=== PATIENT | female | born 1995 | race Caucasian/White ===

== ENCOUNTER 2018-04-16 13:25 | Inpatient (IN) | payer BC ==
[2018-04-16] MEDS ORDERED: Misoprostol 25 MCG (1/4 of 100 MCG) Tab VAG SCH (15:00)
--- NOTE | 2018-04-16 15:35 | US ---
Biophysical profile: Multiple real-time images were obtained. Comparison: Previous obstetrical ultrasound, most recent study of 04/12/18. Dates: LMP: LMP given as 08/05/17, BRENNAN 05/12/18, gestational age 36 weeks 2 days Current ultrasound: BRENNAN 05/14/18, gestational age 36 weeks 0 days Earliest ultrasound (04/12/18): BRENNAN 05/13/18, gestational age 36 weeks 1 day presentation: Cephalic Placenta: Anterior with no findings of placenta previa Amniotic fluid: KIMBERLEE 11.15 cm Measurements: BPD: 8.76 cm - 35 weeks 3 days Head circumference: 31.50 cm - 35 weeks 3 days Abdominal circumference: 32.50 cm - 36 weeks 3 days Femur length: 7.13 cm - 36 weeks 4 days Estimated weight: 2878 g ( 6 lb 6 ounces) fetus at the 57th percentile for age by current ultrasound Cervical length: 3.6 cm Growth curves: Various growth curves are around the mean percentile. Growth is felt to be appropriate from previous studies. Impression: 1. Single intrauterine fetus currently cephalic in presentation. 2. Dates as noted above. 3. No complicating process is seen by ultrasound at this time. Diagnostic code #2 MTDD
[2018-04-16] MEDS ORDERED: Acetaminophen 325 MG Tab PO PRN (17:28)
[2018-04-16] MEDS: Labetalol 100 MG Tab PO SCH (18:43)
[2018-04-16] MEDS: Misoprostol 25 MCG (1/4 of 100 MCG) Tab VAG SCH ×3 (18:45→23:56)
[2018-04-16] MEDS ORDERED: Lactated Ringers 1,000 ML ONE (20:28)
[2018-04-16] MEDS ORDERED: Lidocaine 1% 50 ML MDV INJECT ONE (20:28)
[2018-04-16] MEDS ORDERED: Sodium Chloride 0.9% 10 ML Syringe FLUSH PRN (20:28)
[2018-04-16] MEDS ORDERED: Nalbuphine 20 MG/ML 1 ML Syringe IVPUSH ONE ×2 (20:28)
[2018-04-16] MEDS ORDERED: Oxytocin/Lactated Ringers 10 UNIT/1,000 ML BAG IV SCH (20:30)
[2018-04-16] MEDS: Lactated Ringers 1,000 ML IV SCH (20:37)
[2018-04-16] MEDS: Oxytocin/Lactated Ringers 10 UNIT/1,000 ML BAG IV SCH (20:37)
[2018-04-16] MEDS ORDERED: ePHEDrine 50 MG/ML SDV IVPUSH PRN (22:12)
[2018-04-16] MEDS ORDERED: Ondansetron 4 MG/2 ML SDV IVPUSH PRN (22:12)
[2018-04-16] MEDS ORDERED: diphenhydrAMINE 50 MG/ML SDV IVPUSH PRN (22:12)
--- NOTE | 2018-04-16 22:15 | PCM.PREANE ---
Preanesthetic Assessment - Procedure Proposed Procedure: FRITZ - Anesthesia/Transfusion/Family Hx Anesthesia History: Prior Anesthesia Without Reaction Family History of Anesthesia Reaction: No Transfusion History: No Prior Transfusion(s) - Review of Systems General: No Symptoms Pulmonary: No Symptoms Cardiovascular: No Symptoms Gastrointestinal: No Symptoms Neurological: No Symptoms Other: Reports: None - Physical Assessment NPO Status Date: 04/16/18 NPO Status Time: 18:00 Pulse: 80 O2 Sat by Pulse Oximetry: 100 Respiratory Rate: 16 Blood Pressure: 147/94 Vital Signs: Last Vital Signs Temp 37.0 C 04/16/18 13:25 Pulse 80 04/16/18 18:43 Resp 16 04/16/18 13:25 BP 147/94 H 04/16/18 18:43 Pulse Ox 100 04/16/18 13:25 Height: 1.65 m Weight: 82.599 kg ASA Class: 2 Mental Status: Alert & Oriented x3 Airway Class: Mallampati = 2 Dentition: Reports: Normal Dentition Thyro-Mental Finger Breadths: 3 Mouth Opening Finger Breadths: 3 ROM/Head Extension: Full Lungs: Clear to Auscultation, Normal Respiratory Effort Cardiovascular: Regular Rate, Regular Rhythm - Allergies Allergies/Adverse Reactions: Allergies Allergy/AdvReac Type Severity Reaction Status Date / Time No Known Allergies Allergy Verified 01/01/18 19:41 CDT - Blood Blood Available: No Product(s) Available: None - Anesthesia Plan Pre-Op Medication Ordered: None - Acknowledgements Anesthesia Type Planned: Epidural Pt an Appropriate Candidate for the Planned Anesthesia: Yes Alternatives and Risks of Anesthesia Discussed w Pt/Guardian: Yes Pt/Guardian Understands and Agrees with Anesthesia Plan: Yes PreAnesthesia Questionnaire - Past Health History Medical/Surgical History: Denies 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: Neurological History: Reports: Headaches, Chronic - Past Surgical History Neurological Surgical History: Reports: None - SUBSTANCE USE Smoking Status *Q: Never Smoker Tobacco Use Within Last Twelve Months: No Second Hand Smoke Exposure: No - HOME MEDS Home Medications: Home Meds Labetalol HCl [Labetalol] 100 mg PO BID #60 tablet 04/14/18 [Rx] - CURRENT (IN HOUSE) MEDS Current Meds: Current Medications Acetaminophen (Tylenol) 650 mg PO Q4H PRN PRN Reason: Pain Last Admin: 04/16/18 19:27 Dose: 650 mg Diphenhydramine HCl (Benadryl) 25 mg IVPUSH Q6H PRN PRN Reason: Pruritis Ephedrine Sulfate (Ephedrine Sulfate) 5 mg IVPUSH ASDIRECTED PRN PRN Reason: Hypotension Fentanyl (Sublimaze) 100 mcg EPIDUR Q3H PRN PRN Reason: Pain Fentanyl/Bupivacaine HCl (Fentanyl/Bupivacaine/Ns 2 Mcg-0.125% 100 Ml) 100 ml EPIDUR ASDIRECTED [place] Oxytocin/Lactated Ringer's (Pitocin In Lr 10 Units/1,000 Ml) 10 unit in 1,000 mls @ 12 mls/hr IV TITRATE [place]; Protocol Last Titration: 04/16/18 21:37 Dose: 6 munits/min, 36 mls/hr Lactated Ringer's (Ringers, Lactated) 1,000 mls @ 125 mls/hr IV ASDIRECTED H[place] Last Admin: 04/16/18 20:37 Dose: 125 mls/hr Oxytocin/Lactated Ringer's (Pitocin In Lr 10 Units/1,000 Ml) 10 unit in 1,000 mls @ 500 mls/hr IV .CONTINUOUS [place] Labetalol HCl (Normodyne) 100 mg PO TID [place] Last Admin: 04/16/18 18:43 Dose: 100 mg Misoprostol (Cytotec) 25 mcg VAG Q3H [place] Stop: 04/16/18 23:31 Last Admin: 04/16/18 21:08 Dose: Not Given Ondansetron HCl (Zofran) 4 mg IVPUSH ONETIME PRN PRN Reason: Nausea/Vomiting Sodium Chloride (Saline Flush) 10 ml FLUSH ASDIRECTED PRN PRN Reason: Keep Vein Open Discontinued Medications Lactated Ringer's (Ringers, Lactated) Confirm Administered Dose 1,000 mls @ as directed .ROUTE .STK-MED ONE Stop: 04/16/18 20:29 Last Admin: 04/16/18 21:08 Dose: Not Given Lidocaine HCl (Xylocaine 1%) 20 ml INJECT ONETIME ONE Stop: 04/16/18 20:29 Misoprostol (Cytotec) 25 mcg VAG Q4H [place] Last Admin: 04/16/18 15:22 Dose: 25 mcg Nalbuphine HCl (Nubain) 1 mg IVPUSH ONETIME ONE Stop: 04/16/18 20:29 Nalbuphine HCl (Nubain) 10 mg IVPUSH ONETIME ONE Stop: 04/16/18 20:29
[2018-04-17] MEDS: Labetalol 100 MG Tab PO SCH ×2 (00:15→08:40)
[2018-04-17] MEDS: fentaNYL 100 MCG/2 ML SDV EPIDUR PRN ×2 (03:59→11:31)
[2018-04-17] MEDS: Bupivacaine/fentaNYL/NS 100 ML Bag EPIDUR SCH ×2 (03:59→11:31)
[2018-04-17] MEDS: Lactated Ringers 1,000 ML IV SCH (04:29)
--- NOTE | 2018-04-17 06:49 | HP ---
DATE OF ADMISSION: 04/16/2018 ADMISSION DIAGNOSES: 36-2/7 weeks' intrauterine , preeclampsia. HISTORY OF PRESENT ILLNESS: The patient is a 22-year-old, 2, para 0-0-1-0, white female, who is at 36-2/7 weeks' gestational age with an BRENNAN of 05/12/2018. She has been seen over the last week in clinic with progressively increasing blood pressures. Last week, her blood pressures were in the 130s to 145/90 range. They did come down with time and with extended monitoring in Labor and Delivery. Her biophysical profile was reassuring at 8/8 at that time. Laboratory testing at that time initially showed a normal CMP with the exception of the uric acid was 7.9. Liver function studies and kidney function studies specifically were negative. Her deep tendon reflexes were normal, and the patient was advised to go to bedrest, decrease her salt, do daily blood pressure evaluations, and call if increased or if situation worsened. She did come in over the weekend, specifically 04/14/2018, at which time, borderline blood pressures were again found. Her uric acid at that time was decreased to 7.7 and liver function studies were again normal. She was started on labetalol 100 mg p.o. b.i.d. She had a general feeling of unwell at that time. At this time, she is seen in clinic in followup and her blood pressures are again borderline elevated with average approximately 138/92. She has trace edema. Her urinalysis shows 2+ protein. Her uric acid is 7.0 and liver function studies and CBC otherwise are within normal limits. She underwent biophysical profile, which was a score 4 on a scale of 10, and was evaluated in Labor and Delivery. Her heart tones were generally reassuring, but reactive nonstress test was not obtained. Decision was made to proceed with induction of labor for the diagnosis of preeclampsia at 36-2/7 weeks' gestational age. Her cervix was 2 cm, 70% effaced, mid position, minus 3, soft. The patient is in agreement with the plan at this time. She is concerned about her . LEGAL OFFICE ADMINISTRATOR HISTORY: BRENNAN 05/12/2018 as determined by a first ultrasound done on 01/18/2018. This was substantiated by a second ultrasound done on 04/12/2018. The patient's course up until approximately 10 days ago was unremarkable. She has had a group B strep screen which was negative in Labor and Delivery. She is Rh negative and had RhoGAM given during the second trimester. She had flu shot given 09/07/2017, and she is rubella immune. The patient is okay with an epidural and again she received RhoGAM on 02/15/2018. Her first visit was a transfer of care from [place], [place]. She had recently moved to [place] for work-related reasons. This initial transfer visit was at 23-5/7 weeks' gestational age. The patient was seen on a regular basis throughout the rest of the . Her weight gain during the course of that time was from 160.8 up to 181 pounds for a 20-pound weight gain. Her first abnormal blood pressures were noted on 04/12/2018. Laboratory testing in shows blood to be O-negative with negative antibody screen. RhoGAM given at second trimester. Her Pap smear was negative back in 08/2017. She is rubella immune. HIV assay was negative as were gonorrhea and chlamydia assays. Her 1-hour GTT was elevated at 173, but a 3- hour glucose tolerance test was normal with the following values. Fasting blood sugar 93, 1-hour blood sugar of 149, 2-hour blood sugar 132, 3-hour blood sugar 127. Second trimester hemoglobin was 11.2 g/dL at which time she was started on some iron therapy. Platelet count at that time was 248. She is group B strep negative. ALLERGIES: Bee stings. CURRENT MEDICATIONS: 1. vitamins 1 daily. 2. Labetalol 100 mg p.o. b.i.d. PAST MEDICAL HISTORY: Asthma. PAST SURGICAL HISTORY: [place] teeth extraction. FAMILY HISTORY: Mother is alive, but a smoker, She has high blood pressure and thyroid problems along with psoriasis. Father is alive, is a smoker, has some type of potential cancer diagnosed, but the patient does not know the details of this. Two brothers, twins, alive and well, and one sister alive and well. Maternal grandmother, history unknown. Maternal grandfather is alive with diabetes. Paternal grandfather, unknown history, and paternal grandmother, unknown history. There is no family history of complications, bleeding, or blood clotting disorders. SOCIAL HISTORY: The patient is single, lives in [place]. She has some college education. Her significant other is Jared Oglesby. She does not use any significant amounts of alcohol, drugs, or tobacco. REVIEW OF SYSTEMS: GENERAL: The patient has a feeling of unwell. A slight headache is noted. She does report edema in lower extremities. SKIN: Warm and without lesions. HEENT: Headaches. CARDIOVASCULAR: No chest pain or exercise intolerance. RESPIRATORY: No shortness of breath or infectious symptoms. BREASTS: Changes associated with only - the patient does plan to breast feed. GI: Negative. : The baby has been active, but decreased in activity. MUSCULOSKELETAL: Negative with the exception of mild edema in bilateral lower extremities. NEUROLOGICAL: Headaches and general feeling of unwell. PHYSICAL EXAMINATION: GENERAL: The patient is a well-developed, well-nourished pleasant female, in mild distress, who has somewhat of a concerned look on her face and is worried about . She reports headache. VITAL SIGNS: Blood pressure is 138/92 on one evaluation in the clinic. Remainder of exam, evaluations on extended evaluation in Labor and Delivery are similar. Her weight is 181 with weight earlier in of 160 for a 20- pound weight gain. heart rate 145. SKIN: Warm and dry without lesions. HEENT: Within normal limits. NECK: Within normal limits. BACK: Within normal limits. LUNGS: Clear with good breath sounds in all lung sanchez. CARDIOVASCULAR: Shows regular rate and rhythm without murmurs. BREAST: Deferred at this time. The patient does plan to breast feed. ABDOMEN: Protuberant with with fundal height of 35.5 cm with baby in vertex presentation. : Cervix is 2 cm, 70% effaced, mid position, minus 3 station, soft. EXTREMITIES: Show trace edema. NEUROLOGICAL: Shows deep tendon reflexes 1+/4 in lower extremities bilaterally. ASSESSMENT: 1. 36-2/7 weeks' intrauterine , preeclampsia with a general feeling of unwell, proteinuria, elevated uric acid. 2. Non-reassuring testing consisting of a biophysical profile with score of 4/10. 3. Rh-negative. Has received RhoGAM. Candidate for RhoGAM potentially after delivery. 4. Rubella immune. 5. The patient is okay with epidural. 6. The patient plans to breast feed. PLAN: 1. Induction of labor with initial cervical ripening with Cytotec followed by Pitocin. Procedure, risks, benefits, efficacy, and followup discussed with the patient. She appears to understand and wishes to proceed. 2. Monitor deep tendon reflexes closely. We will add magnesium sulfate as indicated. 3. Monitor blood pressure closely. We will continue labetalol at 100 mg p.o. t.i.d. 4. Manager Database to be informed of the patient's induction. 5. Rubella immune, therefore, not in need of rubella. MMODAL /[id number]
[2018-04-17] MEDS: Oxytocin/Lactated Ringers 10 UNIT/1,000 ML BAG IV SCH (09:16)
[2018-04-17] MEDS ORDERED: Docusate Sodium 100 MG Cap PO PRN (17:53)
[2018-04-17] MEDS ORDERED: Benzocaine/Menthol 20%-0.5% Spray 56 GM Canister TOP PRN (17:53)
[2018-04-17] MEDS ORDERED: Lanolin 100% Cream 7 GM Tube TOP PRN (17:53)
[2018-04-17] MEDS ORDERED: Acetaminophen 325 MG Tab PO PRN (17:53)
[2018-04-17] MEDS ORDERED: Witch Hazel Medicated Pads 100/Jar TOP PRN (17:53)
--- NOTE | 2018-04-17 17:57 | PCM.SN ---
- Free Text/Narrative Note: Delivery note: Erin is a 22-year-old 1 now para 1001 white female was admitted on the late afternoon of 04/16/2018 as diagnosis 36-2/7 week intrauterine , preeclampsiaprogressive in nature. She was induced initially with cervical ripening with Cytotec. She did however start deonte every 3 minutes and was then switched to Pitocin. She underwent artificial rupture membranes with resultant clear amniotic fluid. She underwent epidural for labor analgesia. She progressed steadily to complete cervical dilation by approximately 1330 hrs. She delivered a viable, merlos, female infant with Apgars of 8 and 9, length of 18.0 inches and weight of 2750 g (6 pounds 1.0 ounces) in a right occiput anterior position at 1406 hrs. on 04/17/2018. Baby was placed on mom's abdomen and nose and mouth were bulb suctioned. The cord was then clamped 2 and cut by the baby's father. Cord was obtained. Pitocin was started after the delivery of the baby IV to facilitate increase in uterine tone and decreased likelihood of bleeding. She had a second-degree perineal laceration which was eventually repaired with 3 -0 Monocryl suture in a routine fashion. Epidural had been placed during the course of labor and was used for the perineal laceration repair. The placenta delivered at 1414 hrs. in a [place] reason dictation, appeared intact and complete and was discarded per patient desire. Estimated blood loss was 100 mL. Patient plans to breast-feed. Condition: Good.
[2018-04-17] MEDS: Ibuprofen 600 MG Tab PO PRN (18:05)
[2018-04-17] MEDS ORDERED: Lidocaine 1% PF 2 ML SDV ONE (22:00)
[2018-04-17] MEDS ORDERED: Bupivacaine 0.25% 10 ML SDV ONE (22:00)
[2018-04-17] MEDS ORDERED: Lidocaine 1.5% with EPINEPHrine 1:200,000 5 ML Amp ONE (22:00)
--- NOTE | 2018-04-18 07:38 | PCM48HPAN ---
Post Anesthesia Note - EVALUATION WITHIN 48HRS OF ANESTHETIC Vital Signs in Normal Range: Yes Patient Participated in Evaluation: Yes Respiratory Function Stable: Yes Airway Patent: Yes Cardiovascular Function Stable: Yes Hydration Status Stable: Yes Pain Control Satisfactory: Yes Nausea and Vomiting Control Satisfactory: Yes Mental Status Recovered: Yes Pulse Rate: 80 Resp Rate: 16 Temperature: 36.9 C Blood Pressure: 115/71 - COMMENTS/OBSERVATIONS Free Text/Narrative:: no anesthesia complications noted
[2018-04-18] MEDS: Ibuprofen 600 MG Tab PO PRN ×2 (08:56→16:31)
--- NOTE | 2018-04-18 08:57 | PCM.SN ---
- Free Text/Narrative Note: note: Patient is doing well in the period. Minimal lochia, voiding well, ambulated without problems. Nursing without concerns. Patient is afebrile, vital signs are stable blood pressures are normalizing. Abdomen is flat, soft, uterus is below the umbilicus and is firm and nontender. Legs are nontender. Hemoglobin 9.0 and platelets are 188,000. Assessment: recovery going well. Pre-eclampsia appears to be resolving. Plan: Routine care. Patient be discharged home within the next 24- 48 hours.
[2018-04-18] MEDS ORDERED: Sodium Chloride 0.9% 1,000 ML IV ONE (17:17)
[2018-04-18] MEDS ORDERED: Labetalol 100 MG Tab PO ONE (17:30)
[2018-04-18] MEDS ORDERED: Dextrose 5%-Lactated Ringers 1,000 ML IV SCH (17:30)
[2018-04-18] MEDS ORDERED: Diphtheria,Pertussis(Acell),Tetanus Vaccine 0.5 ML SDV IM ONE (20:29)
[2018-04-18] MEDS: Labetalol 100 MG Tab PO SCH (20:40)
[2018-04-19] MEDS: Ibuprofen 600 MG Tab PO PRN (07:57)
[2018-04-19] MEDS: Labetalol 100 MG Tab PO SCH (08:01)
--- NOTE | 2018-04-19 11:10 | PCM.DCSUM1 ---
Discharge Summary - Hospital Course Free Text/Narrative:: Erin is a 22-year-old 1 now para 1001 white female was admitted on the late afternoon of 04/16/2018 as diagnosis 36-2/7 week intrauterine , preeclampsiaprogressive in nature. She was induced initially with cervical ripening with Cytotec. She did however start deonte every 3 minutes and was then switched to Pitocin. She underwent artificial rupture membranes with resultant clear amniotic fluid. She underwent epidural for labor analgesia. She progressed steadily to complete cervical dilation by approximately 1330 hrs. She delivered a viable, merlos, female infant with Apgars of 8 and 9, length of 18.0 inches and weight of 2750 g (6 pounds 1.0 ounces) in a right occiput anterior position at 1406 hrs. on 04/17/2018. Baby was placed on mom's abdomen and nose and mouth were bulb suctioned. The cord was then clamped 2 and cut by the baby's father. Cord was obtained. Pitocin was started after the delivery of the baby IV to facilitate increase in uterine tone and decreased likelihood of bleeding. She had a second-degree perineal laceration which was eventually repaired with 3 -0 Monocryl suture in a routine fashion. Epidural had been placed during the course of labor and was used for the perineal laceration repair. The placenta delivered at 1414 hrs. in a [place] reason dictation, appeared intact and complete and was discarded per patient desire. Estimated blood loss was 100 mL. Patient plans to breast-feed. the patient has had a relatively normal course with the exception of some mild blood pressure increase proxy 12-24 hours after delivery. At that time she was restarted on labetalol 100 mg by mouth 3 times a day which normalized her blood pressures. CBC was within normal limits with the exception of mildly decreased platelet count from normal but her CMP showed a uric acid which was decreasing to 6.8 from 7.0 on admission. Her function studies and kidney function studies otherwise were within normal limits. Her deep tendon reflexes remained normal throughout the hospital course. Patient did have an episode of feeling unwell and headache which resolved with fluid hydration. Is desiring discharge home today. Diagnosis: Stroke: No - Discharge Data Discharge Date: 04/19/18 Discharge Disposition: Home, Self-Care 01 Condition: Good - Patient Instructions Diet: Regular Diet as Tolerated Activity: As Tolerated (No intercourse tampons until bleeding resolves) Driving: Do Not Drive Showering/Bathing: May Shower (May take a bath) Notify Provider of: Fever, Increased Pain, Swelling and Redness, Nausea and/or Vomiting Other/Special Instructions: Patient call if blood pressures greater than 150 systolic or 100 diastolic. She will do blood pressures on a daily basis. - Discharge Plan *PRESCRIPTION DRUG MONITORING PROGRAM REVIEWED*: No *COPY OF PRESCRIPTION DRUG MONITORING REPORT IN PATIENT TEA: No Home Medications: Home Meds Acetaminophen [Tylenol] 650 mg PO Q4H PRN tablet 04/19/18 [Rx] Ibuprofen [Motrin] 600 mg PO Q4H PRN tablet 04/19/18 [Rx] Labetalol [Normodyne] 100 mg PO TID tablet 04/19/18 [Rx] Referrals: Cisco Prescott MD [Physician] - (Return to clinicDr. Prescott1 week.) - Discharge Summary/Plan Comment DC Time >30 min.: No Discharge Summary/Plan Comment: Discharge instructions: 1. Discharge home 2. Diet, activity and follow-up discussed with patient. Recommend nursing diet with increased calories and calcium. 3. Precautions given concern increased pain, bleeding, temperature, signs/ symptoms of DVT/PE. 4. Medications per home medication was printed, discussed with and given to the patient. 5. Patient to blood pressures on a daily basis. Will call if greater than 150/ 100. Return to clinic-Dr. Prescott[facility] in 1 week. Diagnosis: Term -delivered Condition: Good - Patient Data Vitals - Most Recent: Last Vital Signs Temp 37.5 C 04/19/18 07:57 Pulse 87 04/19/18 08:01 Resp 16 04/19/18 07:50 BP 134/91 H 04/19/18 08:01 Pulse Ox 97 04/19/18 07:50 Weight - Most Recent: 82.599 kg Lab Results - Last 24 hrs: Laboratory Results - last 24 hr 04/16/18 04/18/18 04/18/18 Range/Units 12:35 17:41 17:41 WBC 9.50 (3.98-10.04) K/mm3 RBC 3.08 L (3.98-5.22) M/mm3 Hgb 8.6 L (11.2-15.7) gm/L Hct 26.1 L (34.1-44.9) % MCV 84.7 (79.4-94.8) fl MCH 27.9 (25.6-32.2) pg MCHC 33.0 (32.2-35.5) g/dl RDW Std Deviation 41.5 (36.4-46.3) fL Plt Count 172 L (182-369) K/mm3 MPV 12.0 (9.4-12.3) fl Neut % (Auto) 87.9 H (34.0-71.1) % Lymph % (Auto) 5.9 L (19.3-51.7) % [place] % (Auto) 5.3 (4.7-12.5) % Eos % (Auto) 0 L (0.7-5.8) Baso % (Auto) 0.1 (0.1-1.2) % Neut # (Auto) 8.35 H (1.56-6.13) K/mm3 Lymph # (Auto) 0.56 L (1.18-3.74) K/mm3 [place] # (Auto) 0.50 H (0.24-0.36) K/mm3 Eos # (Auto) 0.00 L (0.04-0.36) K/mm3 Baso # (Auto) 0.01 (0.01-0.08) K/mm3 Manual Slide Review Abnormal smear Sodium 139 (136-145) mEq/L Potassium 3.6 (3.5-5.1) mEq/L Chloride 106 (98-107) mEq/L Carbon Dioxide 23 (21-32) mEq/L Anion Gap 13.6 (5-15) BUN 8 (7-18) mg/dL Creatinine 1.0 (0.55-1.02) mg/dL Est Cr Clr Drug Dosing 80.08 mL/min Estimated GFR (MDRD) > 60 (>60) mL/min BUN/Creatinine Ratio 8.0 L (14-18) Glucose 97 (74-106) mg/dL Uric Acid 6.8 H (2.6-6.0) mg/dL Calcium 7.9 L (8.5-10.1) mg/dL Total Bilirubin 0.5 (0.2-1.0) mg/dL AST 17 (15-37) U/L ALT 12 L (14-59) U/L Alkaline Phosphatase 166 H (46-116) U/L Total Protein 5.7 L (6.4-8.2) g/dl Albumin 2.1 L (3.4-5.0) g/dl Globulin 3.6 gm/dL Albumin/Globulin Ratio 0.6 L (1-2) Antibody Identification Anti-D Med Orders - Current: Current Medications Acetaminophen (Tylenol) 650 mg PO Q4H PRN PRN Reason: mild pain or fever Last Admin: 04/18/18 17:38 Dose: 650 mg Benzocaine/Menthol (Dermoplast Pain Relief [place]) 0 gm TOP ASDIRECTED PRN PRN Reason: Perineal Comfort Measure Docusate Sodium (Colace) 100 mg PO BID PRN PRN Reason: Constipation Last Admin: 04/18/18 08:56 Dose: 100 mg Emollient Ointment (Lansinoh Hpa) 0 gm TOP ASDIRECTED PRN PRN Reason: Sore Nipples Dextrose/Lactated Ringer's (Dextrose 5%-Lactated Ringers) 1,000 mls @ 150 mls/ hr IV ASDIRECTED H[place]ILTON Last Admin: 04/18/18 18:32 Dose: 150 mls/hr Ibuprofen (Motrin) 600 mg PO Q4H PRN PRN Reason: Mild pain or fever Last Admin: 04/19/18 07:57 Dose: 600 mg Labetalol HCl (Normodyne) 100 mg PO TID [facility] Last Admin: 04/19/18 08:01 Dose: 100 mg Witch Angela (Tucks) 1 pad TOP ASDIRECTED PRN PRN Reason: Hemorrhoid pain Discontinued Medications Acetaminophen (Tylenol) 650 mg PO Q4H PRN PRN Reason: Pain Last Admin: 04/16/18 19:27 Dose: 650 mg Bupivacaine HCl (Sensorcaine-Mpf 0.25%) 20 ml .ROUTE .STK-MED ONE Stop: 04/17/18 22:01 Diphenhydramine HCl (Benadryl) 25 mg IVPUSH Q6H PRN PRN Reason: Pruritis Diphtheria/Tetanus/Acell Pertussis (Adacel) 0.5 ml IM .ONCE ONE Stop: 04/18/18 20:30 Last Admin: 04/19/18 00:06 Dose: 0.5 ml Ephedrine Sulfate (Ephedrine Sulfate) 5 mg IVPUSH ASDIRECTED PRN PRN Reason: Hypotension Fentanyl (Sublimaze) 100 mcg EPIDUR Q3H PRN PRN Reason: Pain Last Admin: 04/17/18 11:31 Dose: 100 mcg Fentanyl/Bupivacaine HCl (Fentanyl/Bupivacaine/Ns 2 Mcg-0.125% 100 Ml) 100 ml EPIDUR ASDIRECTED [place] Last Admin: 04/17/18 11:31 Dose: 100 ml Oxytocin/Lactated Ringer's (Pitocin In Lr 10 Units/1,000 Ml) 10 unit in 1,000 mls @ 12 mls/hr IV TITRATE H[place]; Protocol Last Titration: 04/17/18 10:50 Dose: 7 munits/min, 42 mls/hr Lactated Ringer's (Ringers, Lactated) 1,000 mls @ 125 mls/hr IV ASDIRECTED [place] Last Admin: 04/17/18 04:29 Dose: 125 mls/hr Lactated Ringer's (Ringers, Lactated) Confirm Administered Dose 1,000 mls @ as directed .ROUTE .STK-MED ONE Stop: 04/16/18 20:29 Last Admin: 04/16/18 21:08 Dose: Not Given Oxytocin/Lactated Ringer's (Pitocin In Lr 10 Units/1,000 Ml) 10 unit in 1,000 mls @ 500 mls/hr IV .CONTINUOUS [place] Sodium Chloride (Normal Saline) 1,000 mls @ 999 mls/hr IV ONETIME ONE Stop: 04/18/18 18:17 Last Admin: 04/18/18 18:31 Dose: 999 mls/hr Labetalol HCl (Normodyne) 100 mg PO TID [place] Last Admin: 04/17/18 08:40 Dose: 100 mg Labetalol HCl (Normodyne) 100 mg PO ONETIME ONE Stop: 04/18/18 17:31 Last Admin: 04/18/18 17:39 Dose: 100 mg Lidocaine HCl (Xylocaine 1%) 20 ml INJECT ONETIME ONE Stop: 04/16/18 20:29 Lidocaine HCl (Xylocaine-Mpf 1%) 4 ml .ROUTE .STK-MED ONE Stop: 04/17/18 22:01 Lidocaine/Epinephrine (Xylocaine-Mpf 1.5% W/Epinephrine 1:200,000) 10 ml .ROUTE .STK-MED ONE Stop: 04/17/18 22:01 Misoprostol (Cytotec) 25 mcg VAG Q4H [place] Last Admin: 04/16/18 15:22 Dose: 25 mcg Misoprostol (Cytotec) 25 mcg VAG Q3H [place] Stop: 04/16/18 23:31 Last Admin: 04/16/18 23:56 Dose: Not Given Nalbuphine HCl (Nubain) 1 mg IVPUSH ONETIME ONE Stop: 04/16/18 20:29 Nalbuphine HCl (Nubain) 10 mg IVPUSH ONETIME ONE Stop: 04/16/18 20:29 Ondansetron HCl (Zofran) 4 mg IVPUSH ONETIME PRN PRN Reason: Nausea/Vomiting Last Admin: 04/17/18 17:32 Dose: 4 mg Sodium Chloride (Saline Flush) 10 ml FLUSH ASDIRECTED PRN PRN Reason: Keep Vein Open
== END 2018-04-19 12:15 | disposition home or self-care (01) | DRG 560 ==
LOC: JD.OBCHECK 13:25 → JD.OB 13:26 → EDSTATUS 13:47 → JD.OB 14:04 → JD.OBCHECK 15:01 → JD.OB 15:01 → OBSVTOIN 04-17 14:06 → JD.OB 04-17 14:07
PROVIDERS: ADMIT Obstetrics & Gynecology; ATTEND Obstetrics & Gynecology
PROC: 3E033VJ Introduction of Other Hormone into Peripheral Vein, Percutaneous Approach (ICD-10-PCS; principal; 2018-04-17)
PROC: 3E0P7VZ Introduction of Hormone into Female Reproductive, Via Natural or Artificial Opening (ICD-10-PCS; principal; 2018-04-17)
PROC: 0KQM0ZZ Repair Perineum Muscle, Open Approach (ICD-10-PCS; principal; 2018-04-17)
PROC: 10E0XZZ Delivery of Products of Conception, External Approach (ICD-10-PCS; principal; 2018-04-17)
PROC: 10907ZC Drainage of Amniotic Fluid, Therapeutic from Products of Conception, Via Natural or Artificial Opening (ICD-10-PCS; principal; 2018-04-17)
PROC: 3E0R3BZ Introduction of Anesthetic Agent into Spinal Canal, Percutaneous Approach (ICD-10-PCS; 2018-04-17)
PROC: 00HU33Z Insertion of Infusion Device into Spinal Canal, Percutaneous Approach (ICD-10-PCS; 2018-04-17)
DX: O14.94 Unspecified pre-eclampsia, complicating childbirth (principal); O70.1 Second degree perineal laceration during delivery; Z3A.36 36 weeks gestation of pregnancy; Z37.0 Single live birth; Z91.030 Bee allergy status
CPT/HCPCS: 36415; 51702; 59025; 59300; 59409; 76816; 76819; 76819-26; 80053; 84550; 85025; 85027; 86592; 86850; 86870; 86900; 86901; 87040; 90471; 90715; A9270-GY; J2001; J2405; J2590; J3010; J3490; J7040; J7042; J7120